=== PATIENT | male | born 1965 | race Asian ===

== ENCOUNTER 2018-02-11 16:46 | Emergency (ER) | payer OTHER ==
[~2018-02-11] VITALS: Ht 165.1 cm; Wt 60.3 kg
[2018-02-11 17:28] LABS: PLATELET COUNT 125 K/uL (142-355)
[2018-02-11 17:33] LABS: POTASSIUM 4.3 mmol/L (3.6-5.2)
[2018-02-11 19:25] VITALS: BP 122/60; TEMP 98.1
[2018-02-11] MEDS ORDERED: MULTIVITAMI1 PO (20:04)
[2018-02-11] MEDS ORDERED: CARV3.12 PO (20:59)
[2018-02-11] MEDS ORDERED: MELATONIN10 M1 PO (21:01)
[2018-02-11] MEDS ORDERED: LISI5TAB10 PO (21:02)
[2018-02-11] MEDS ORDERED: ASPIRIN 81 LOW81 MG PO (21:04)
[2018-02-11] MEDS ORDERED: FURO20TA67 PO (21:04)
[2018-02-11] MEDS ORDERED: FOLI1TAB26 PO (21:05)
[2018-02-11] MEDS ORDERED: MAPAP325 MG PO (21:06)
== END 2018-02-11 19:39 | disposition other institution (70) ==
LOC: ED 16:46
DX: R45.851 Suicidal ideations (principal); I10 Essential (primary) hypertension; Z04.6 Encounter for general psychiatric examination, requested by authority
CPT/HCPCS: 36415; 80053; 80307; 80320; 80329; 81000; 83735; 84100; 85027; 93005; 99285